=== PATIENT | female | born 1980 | race Hispanic/Latino ===

== ENCOUNTER → 2021-03-27 10:21 | Outpatient (CLI) | payer OTHER, SELFPAY ==
--- NOTE | ~2021-03-27 | XR_ITS ---
EXAMINATION: XR sacroiliac joints min 3V EXAM DATE: 03/27/2021 12:14 INDICATION: Bilateral sacroiliitis . TECHNIQUE: Sacroiliac joint frontal, bilateral oblique projections. There is no prior study for com [place]. FINDINGS: Sacroiliac joints are symmetric. No erosive change, sclerosis or fusion. No significant ar thritis. There are no acute fractures identified. Some right pelvic calcifications, phleboliths. Mild symmetric bilateral hip primary osteoarthritis. Mild lower lumbar facet arthropathy. IMPRESSION: Unremarkable sacroiliac joints. Reviewed, dictated and finalized at location A. [facility]
== END ==
PROVIDERS: Visit Provider Internal Medicine
DX: M46.1 Sacroiliitis, not elsewhere classified (principal); M54.50 Low back pain, unspecified
CPT/HCPCS: 72202

== ENCOUNTER 2021-11-25 09:13 | Emergency (ER) | payer OTHER, SELFPAY ==
--- NOTE | ~2021-11-25 | US_ITS ---
EXAMINATION: US venous doppler UE RT DATE: 11/25/2021 11:23 INDICATION: Right arm pain TECHNIQUE: Whitlock scale images with and without compression and Doppler images of the right upper extre mity veins were obtained. COMPARISON: None. FINDINGS: The right internal jugular vein, subclavian vein, axillary vein, brachial veins, basilic vein, cephal ic vein, radial vein, and ulnar vein are patent. IMPRESSION: 1. Patent right upper extremity veins. No evidence of deep venous thrombosis. Reviewed, dictated and finalized at location B.
--- NOTE | ~2021-11-25 | CT_ITS ---
EXAMINATION: CTA chest PE protocol DATE: 11/25/2021 11:39 INDICATION: Chest pain TECHNIQUE: Computed tomography angiography (CTA) of the chest was performed with 100 mL Omnipaque-350 intravenous contrast timed to evaluate the pulmonary arteries. Coronal maximum intensity projection 3D-reconstructions were created by the technologist. The dose-length product (DLP) was 165.14 mGy-cm. Automated exposure control and iterative reconstruction technique were employed. COMPARISON: None. FINDINGS: The pulmonary arteries are well-opacified. No pulmonary embolism is identified. Respiratory motion slightly limits the examination. The lungs are free of acute opacities. No pleural effusion o r pneumothorax. No pathologically enlarged thoracic lymph nodes are identified. The heart size is nor mal. There is a 4 mm nodule of the right upper lobe. Bilateral breast implants are noted. IMPRESSION: 1. No pulmonary embolism or acute cardiopulmonary abnormality. Reviewed, dictated and finalized at location A.
--- NOTE | ~2021-11-25 | XR_ITS ---
EXAMINATION: XR chest 2V DATE: 11/25/2021 10:33 INDICATION: Chest tightness TECHNIQUE: PA and lateral views of the chest are obtained. COMPARISON: 10/21/2017 FINDINGS: The lungs are free of acute opacities. No pleural effusion or pneumothorax. The cardiomedia stinal silhouette is normal. There is mild thoracic spondylosis. Bilateral breast implants are noted. IMPRESSION: 1. No acute cardiopulmonary abnormality. Reviewed, dictated and finalized at location A.
[2021-11-25 09:26] VITALS: BP 110/77; PULSE 78; RESP 20; TEMP 36.8; O2SAT 100
--- NOTE | 2021-11-25 09:45 | ECG_ITS ---
Rate 80 OK 172 QRSd 81 QT 378 QTc 437 --Calvin-- P 61 QRS 56 T 67 SINUS RHYTHM NORMAL ECG NO PREVIOUS ECG AVAILABLE FOR COMPARISON Electronically Signed On 11-26-2021 7:00:52 CDT by Fletcher MORA
[2021-11-25] MEDS: SODIUM CHLORIDE 0.9% IV 1,000 ML 999 ML IV CONT (10:20)
[2021-11-25 10:27] LABS: Basophils Percent Auto 0.8 % (0.2-1.2); Eosinophils Absolute Auto 0.1 K/mm3 (0-0.3); Eosinophils Percent Auto 1.9 % (0-4.4); Hematocrit 30.8 % (37.0-47.0); Hemoglobin 9.7 g/dL (12.0-15.0); Immature Granulocyte Absolute 0.03 K/mm3 (0.00-0.031); Immature Granulocyte Percent A 0.6 % (0-0.5); Lymphocytes Absolute Auto 1.06 K/mm3 (0.9-3.2); Lymphocytes Percent Auto 20.5 % (18.3-44.2); Mean Corpuscular HGB Conc 31.5 g/dl (32-36); Mean Corpuscular Hemoglobin 23.4 pg (26-34); Mean Corpuscular Volume 74.4 fl (80-100); Mean Platelet Volume 10.1 fl (7.4-10.4); Monocytes Absolute Auto 0.2 K/mm3 (0.1-0.6); Monocytes Percent Auto 4.7 % (2.6-8.5); Neutrophils Absolute Auto 3.7 K/mm3 (1.3-6.7); Neutrophils Percent Auto 71.5 % (45.5-73.1); Platelet Count Result 386 k/mm3 (150-375); Red Blood Count 4.14 M/mm3 (4.2-5.4); Red Cell Distribution Width 18.2 % (11.5-14.5); White Blood Count 5.2 K/mm3 (4.5-10.0)
[2021-11-25 10:37] LABS: INR 1.1; Prothrombin Time 13.5 Seconds (11.1-14.7)
[2021-11-25 10:38] LABS: Partial Thromboplastin Time 31.5 SECONDS (22.3-36.8)
[2021-11-25 10:43] LABS: Anisocytosis 1+ (NORMAL); Microcytosis 1+ (NORMAL); Ovalocytes 1+ (NORMAL); Platelet Estimate Increased (Adequate)
[2021-11-25 10:44] LABS: D Dimer 1.15 ug/mL (<0.48); Schistocytes None Seen (NORMAL)
[2021-11-25 10:48] LABS: Alanine Aminotransferase 12 U/L (6-35); Albumin Level 4.2 g/dL (3.5-5.1); Alkaline Phosphatase 62 U/L (38-126); Anion Gap 11 mmol/L (8-16); Aspartate Amino Transferase 19 U/L (14-36); Bilirubin,Total 0.2 mg/dL (0.2-1.3); Blood Urea Nitrogen 13 mg/dL (7-17); Calcium 8.7 mg/dL (8.4-10.2); Carbon Dioxide 22 mmol/L (22-30); Chloride 104 mmol/L (98-107); Estimated Glomerular Filt Rate > 60; Glucose 84 mg/dL (65-110); Potassium 3.9 mmol/L (3.4-5.0); Sodium 137 mmol/L (137-145)
[2021-11-25 10:59] LABS: Troponin I < 0.012 ng/mL (0.000-0.034)
[2021-11-25 11:50] VITALS: BP 95/66; PULSE 80; RESP 18; O2SAT 100
--- NOTE | 2021-11-25 13:36 | ED.GENADULT ---
HPI - General Adult General Chief complaint: Unspecified Stated complaint: r arm pain s/p shot, falling, off balance Time Seen by Provider: 11/25/21 09:41 History of Present Illness HPI narrative: Patient is a 41-year-old female who presents ER with several issues. Patient had a Invega injection in her right arm 1 week ago. Since then she has been experiencing multiple issues that concern her. She has been feeling a bit more groggy and feels like she sometimes slurs her words. She feels off balance as well when she is walking. She has no focal weakness in arm or leg. She also endorses that she been feeling central chest tightness. She is unsure if this shot was a same dosage that she has had years ago when she did not have any issues. She is contacted her psychiatrist has not heard back yet. No pre-existing heart disease. Related Data Allergies Allergy/AdvReac Type Severity Reaction Status Date / Time No Known Allergies Allergy Verified 11/25/21 09:29 Review of Systems Review of Systems: All systems reviewed & are unremarkable except as noted in HPI and below Constitutional: Constitutional: Denies chills and Denies fever(s) ENT: Denies nasal congestion and Denies sore throat Cardiovascular: Cardiovascular: Reports chest pain, Denies radiating jaw, neck or arm pain, Denies palpitations and Denies orthopnea Respiratory: Respiratory: Denies cough and Denies dyspnea Gastrointestinal: Gastrointestinal: Denies abdominal pain, Denies nausea and Denies vomiting Musculoskeletal: Musculoskeletal: Denies arthralgias and Denies joint swelling Comments: Right arm soreness PMFSH Past Medical History Medical History Anxiety Surgical History Surgical History History of breast augmentation (~2013) History of tubal ligation (~2010) Hx of CABG (~12/22/18) Family History Family History Grandparent Diabetes mellitus, Onset Age: 70 Family history of Alzheimer's disease, Onset Age: 95 Father Diabetes mellitus Patient's father is in good health Other Heart attack Heart disease Social History Social History Smoking status: Never smoker Second hand tobacco smoke exposure: No Alcohol intake: current Alcohol use details: consumes 1 glass of hard liquor weekly Substance use: never Substance use type: does not use Gender identity (if verbalized by the patient): Female Exam Narrative: GENERAL: Well-appearing, well-nourished, and in no acute distress. HEAD: Normocephalic, atraumatic. EYES: PERRL and EOMI. ENT: Mucous membranes moist. CHEST: Clear to auscultation. No respiratory distress. HEART: Regular rate and rhythm. Normal peripheral pulses. ABDOMEN: Soft, nontender, nondistended. EXTREMITIES: Normal range of motion. No edema. Mild tenderness to right deltoid where patient had injection without bruising or swelling or erythema. SKIN: Warm, dry, no rash. NEURO: Alert and oriented x3. No facial droop. Clear speech with no expressive aphasia. No upper or lower extremity drift. Normal finger-nose testing and [id number] testing. PSYCH: Normal mood and affect. Course Course Emergency Course: No PE or DVT. Troponin negative despite pain for 1 week Symptoms felt to be related to side effects from the Invega. Patient displays no neurologic abnormality. Vital Signs Vital signs: Vital Signs Temperature 98.2 F 11/25/21 09:26 Pulse Rate 78 11/25/21 09:26 Respiratory Rate 20 11/25/21 09:26 Blood Pressure 110/77 11/25/21 09:26 Pulse Oximetry 100 11/25/21 09:26 Oxygen Delivery Room Air 11/25/21 09:26 Temperature 98.2 F 11/25/21 09:26 Pulse Rate 85 11/25/21 13:50 Respiratory Rate 14 11/25/21 13:50 Blood Pressure 111/81
[2021-11-25 13:50] VITALS: BP 111/81; PULSE 85; RESP 14; O2SAT 100
== END 2021-11-25 13:51 | disposition home or self-care (01) ==
PROVIDERS: Emergency Provider Emergency Medicine; PCP Internal Medicine
DX: R47.81 Slurred speech (principal); R07.89 Other chest pain; T43.595A Adverse effect of other antipsychotics and neuroleptics, initial encounter; F41.9 Anxiety disorder, unspecified
CPT/HCPCS: 36415; 71046; 71275; 80053; 84484; 85025; 85380; 85610; 85730; 93005; 93971; 96360; 99284; J7030; Q9967